=== PATIENT | female | born 1995 | race Two or more races ===

== ENCOUNTER 2017-03-21 11:33 | Emergency (ER) | payer OTHER ==
[~2017-03-21] VITALS: Ht 165.1 cm; Wt 70.0 kg
[2017-03-21] MEDS ORDERED: SODIUM CHLORIDE 0.9% 1,000 ML IV ONE (11:54)
[2017-03-21] MEDS ORDERED: TETANUS, DIPHTHERIA, PERTUSSIS VAC/PF 0.5ML (>7YR OLD) IM ONE (12:00)
[2017-03-21 12:15] LABS: BASOPHILS % 0.4 % (0.0-2.0); EOSINOPHILS % 1.5 % (0.0-5.0); HEMATOCRIT. 40.6 % (36.0-48.0); HEMOGLOBIN. 13.8 g/dL (12.0-16.0); LYMPHOCYTES % 23.6 % (20.0-50.0); MEAN CORPUSCULAR HEMOGLOBIN 29.2 pg (28.0-32.0); MEAN CORPUSCULAR VOLUME 86.2 fL (81.0-99.0); MEAN PLATELET VOLUME 8.3 fl (7.4-10.4); MONOCYTES % 5.2 % (2.0-8.0); NEUTROPHILS % 69.3 % (40.0-76.0); PLATELET 242 x1000/uL (130-400); RED BLOOD CELL COUNT 4.72 mill/uL (4.2-5.4); RED CELL DISTRIBUTION WIDTH 13.2 % (11.6-14.6)
[2017-03-21 12:22] LABS: PROTHROMBIN TIME 10.7 sec (9.4-11.6)
[2017-03-21 12:33] LABS: CARBON DIOXIDE 29 mEq/L (21-32); CHLORIDE 105 mEq/L (98-107); TROPONIN I < 0.02 ng/mL (0.00-0.04)
[2017-03-21 12:36] LABS: HCG SCREEN NEGATIVE
[2017-03-21] MEDS ORDERED: IOHEXOL-350 100 ML BOTTLE ONE ×2 (13:07→14:06)
[2017-03-21 17:30] VITALS: BP 96/56
== END 2017-03-21 17:48 | disposition home or self-care (01) ==
LOC: ER 11:38
DX: S01.511A Laceration without foreign body of lip, initial encounter (principal); R55 Syncope and collapse; R07.9 Chest pain, unspecified; X58.XXXA Exposure to other specified factors, initial encounter; Y93.89 Activity, other specified; Y92.89 Other specified places as the place of occurrence of the external cause; Y99.8 Other external cause status
CPT/HCPCS: 36415; 71010; 71275; 80053; 83880; 84484; 84703; 85025; 85610; 90471; 90715; 93005; 96360; 99285; J7030; Q9967; Z7610